=== PATIENT | male | born 1945 | race Caucasian/White ===

== ENCOUNTER 2018-10-02 14:01 | Inpatient (IN) | payer MEDICARE ==
[~2018-10-02] VITALS: Ht 170.1 cm; Wt 90.7 kg
--- NOTE | ~2018-10-02 | PR ---
[place], [place] PROGRESS NOTE NAME: FAWN DOE UNIT #: [id number] ROOM: 312 DOCTOR: RENETTA GARDNER MD BIRTHDATE: [birth year] DOS: 10/04/2018 INTERVAL NOTE CHIEF COMPLAINT: "Oh, I slept like a log again." SUMMARY OF THE VISIT: The patient was interviewed as he was sitting in the group therapy room with a male peer. He did allow me to discuss openly his case in front of the other gentleman. He reports that he slept soundly through the night for the second night in a row, which is in fiore contrast to what he was doing at home and he also reports that he was told that it was a noisy night and he states "I heard none of it." He did wake up refreshed. He was not somnolence. He ate a good breakfast and is voicing positive plans for the future. He denies suicidal thoughts, homicidal thoughts. He denies any medication side effects. MENTAL STATUS: He is alert and oriented to person, place and time. Mood does seem to be strongly trending towards euthymia. Affect is much more appropriate. There is no jose or hypomania. There is no gross psychosis. Short, intermediate, and long-term memory are fully intact. PLAN: I will maintain his dose of Remeron at 15 mg at bedtime, engage in individual and forman milieu activity, returning to the least restrictive environment when psychiatrically stable. RENETTA GARDNER MD CM:PNTRANS [id number] RENETTA GARDNER MD 10/04/18 1507 interface
--- NOTE | ~2018-10-02 | WRIGHTHP ---
[place], [place] PATIENT HISTORY AND PHYSICAL EXAM NAME: FAWN DOE UNIT #: [id number] ROOM: 312 DOCTOR: RENETTA GARDNER MD BIRTHDATE: [birth year] DOS: 10/03/2018 INITIAL PSYCHIATRIC EVALUATION CHIEF COMPLAINT: "Oh, I did something really stupid. I really think it was a cry for help." HISTORY OF PRESENT ILLNESS: This is a 73-year-old white male who presented to the Emergency Room at [facility] after ingesting 6 lisinopril tablets in an apparent suicide attempt. The patient reports ongoing financial issues that have been weighing him down his mind constantly races with worry. 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 He also has had fluctuating appetite. He does report that he is feeling very despondent and down, but does have significant remorse for his action and realizes that this is not the way out. He is open to receiving both medication and counseling and in fact did suffer a depressive episode approximately 12 years ago after his mother and he did undergo counseling services at that time. He is currently admitted now to rule out further organic factors, to stabilize on medication, to engage in individual and forman milieu activity, returning then to the least restrictive environment when psychiatrically stable. PAST MEDICAL HISTORY: Remarkable for previous history of depression, also of hypertension, obesity, nicotine abuse and nephrolithiasis. SOCIAL HISTORY: He is a cigarette smoker. He does not use illicit drugs nor does he drink alcohol. ALLERGIES: He lists allergies to SULFA, ACETAMINOPHEN and OXYCODONE. STRENGTHS: Good verbal skills, ambulatory, ask for help. WEAKNESSES: Poor coping skills. MENTAL STATUS: He is alert and oriented to person, place, and time. Mood is very depressed with a sad, constricted affect. There is some anxious overtones. He endorses racing thoughts, usually of worry. There is no hypomania or jose. There are no auditory or visual hallucinations. No delusions, no paranoia. Memory for the most part is fully intact. DIAGNOSIS: Major depression, recurrent. PLAN: I have already started him on Remeron 15 mg at bedtime and he did sleep well last night. I will monitor for risk, benefits and adjust accordingly. Screening examination show him to have a low vitamin D level of 17.7. I will augment with vitamin D 5000 International Units daily, engage in individual and forman milieu activity, returning then to the least restrictive environment when psychiatrically stable. [place], [place] PATIENT HISTORY AND PHYSICAL EXAM NAME: FAWN DOE UNIT #: [id number] ROOM: 312 DOCTOR: RENETTA GARDNER MD BIRTHDATE: [birth year] RENETTA GARDNER MD CM:HISPHYS:PATIENT HISTORY AND PHYSICAL EXAMINATION 6 0 RENETTA GARDNER MD 10/03/18929 interface
--- NOTE | ~2018-10-02 | PR ---
[place], [place] PROGRESS NOTE NAME: FAWN DOE UNIT #: [id number] ROOM: 312 DOCTOR: RENETTA GARDNER MD BIRTHDATE: [birth year] DOS: 10/05/2018 CHIEF COMPLAINT: "I am feeling better. I really want to thank you for everything." SUMMARY OF THE VISIT: The patient was interviewed in the dining area. He stood up and shook my hand and states that he slept very well yet again third night in a row and woke up feeling refreshed. He voices positive plans for the future and is very hopeful he will be able to get things back on track for himself and his family. He notes no side effects from the medication. He convincingly denies suicidal thoughts, homicidal thoughts or any self-injurious thoughts. MENTAL STATUS: He is alert and oriented. Mood does seem to be strongly trending towards euthymia. Affect is much more appropriate. There is no hypomania, jose or psychosis. Memory is fully intact. PLAN: I will continue him on his current psychotropic regimen, support and monitor, engage in individual and forman milieu activity, returning then to the least restrictive environment when psychiatrically stable. RENETTA GARDNER MD CM:PNTRANS 6 9 RENETTA GARDNER MD 10/05/1809 interface
[2018-10-02] MEDS ORDERED: LISINOPRIL10 M1 PO (14:04)
[2018-10-02 16:14] VITALS: BP 151/65
[2018-10-02 16:40] VITALS: BP 151/65
[2018-10-02 19:42] VITALS: BP 142/66
[2018-10-03 06:41] LABS: BASO # 0.1 10*3/uL (0.0-0.1); EOS # 0.4 10*3/uL (0.0-0.4); EOS % 5.5 % (1.0-4.0); HEMATOCRIT 49.2 % (42.0-52.0); HEMOGLOBIN 15.9 g/dl (14.0-18.0); LYMPH # 1.7 10*3/uL (1.3-4.4); MEAN CELL VOLUME 96.3 fl (80.0-94.0); MEAN CORPUSCULAR HGB 31.1 pg (27.0-31.0); MEAN CORPUSCULAR HGB CONC 32.3 g/dl (33.0-37.0); MONO # 0.8 10*3/uL (0.1-1.0); MONO % 10.8 % (3.0-9.0); NEUT % 58.4 % (47.0-73.0); PLATELET COUNT AUTOMATED 266 10*3/uL (130-400); RED BLOOD COUNT 5.11 10*6/uL (4.50-5.90); RED CELL DISTRI WIDTH 12.8 % (0-14.5); WHITE BLOOD COUNT 6.9 10*3/uL (4.8-10.8)
[2018-10-03 07:04] LABS: BUN 13 mg/dl (7-24); CHLORIDE 107 mmol/L (98-107); CHOLESTEROL 145 mg/dL (<200); CREATININE 1.04 mg/dL (0.70-1.30); POTASSIUM 3.9 mmol/L (3.5-5.1); SGOT/AST 18 IU/L (3-35); SGPT/ALT 21 U/L (12-78); SODIUM 142 mmol/L (136-145); TOTAL PROTEIN 7.7 gm/dL (6.4-8.2); TRIGLYCERIDES 130 mg/dl (<150); VLDL CHOLESTEROL 26 mg/dL (6-40)
[2018-10-03 07:13] LABS: ALKALINE PHOSPHATASE 82 U/L (45-117); HDL CHOLESTEROL 40 mg/dl (40-60); LDL CHOLESTEROL 79 mg/dL (9-159)
[2018-10-03 07:50] VITALS: BP 112/81
[2018-10-03 08:00] LABS: VITAMIN D, 25-HYDROXY 17.7 ng/mL (30-100)
[2018-10-03 19:58] VITALS: BP 150/66
[2018-10-04 07:22] VITALS: BP 143/73
[2018-10-04 20:04] VITALS: BP 123/57
[2018-10-05 07:20] VITALS: BP 139/62
[2018-10-05] MEDS ORDERED: VITAMIN D5000 UNI1 PO (13:05)
[2018-10-05 20:14] VITALS: BP 129/60
[2018-10-06 07:05] VITALS: BP 128/57
[2018-10-06] MEDS ORDERED: MIRTAZAPINE15 M2 PO (07:09)
== END 2018-10-06 13:32 | disposition home or self-care (01) | DRG 885 ==
LOC: 3N 14:01
PROVIDERS: Psychiatry & Neurology Psychiatry
DX: F33.9 Major depressive disorder, recurrent, unspecified (principal); T50.902A Poisoning by unspecified drugs, medicaments and biological substances, intentional self-harm, initial encounter; Z96.643 Presence of artificial hip joint, bilateral; I10 Essential (primary) hypertension; E66.9 Obesity, unspecified; F17.200 Nicotine dependence, unspecified, uncomplicated; Z88.2 Allergy status to sulfonamides; Z88.6 Allergy status to analgesic agent; Z98.42 Cataract extraction status, left eye; Z71.6 Tobacco abuse counseling; Z98.41 Cataract extraction status, right eye; Z79.899 Other long term (current) drug therapy; Z68.31 Body mass index [BMI] 31.0-31.9, adult